=== PATIENT | male | born 1940 | race Caucasian/White ===

== ENCOUNTER → 2020-07-05 | Outpatient (CLI) | payer OTHER ==
--- NOTE | 2020-07-05 15:22 | Diagnostic Imaging Report ---
PROCEDURE: US carotid duplex, bilateral. TECHNIQUE: Multiple real-time grayscale images were obtained over the carotid arteries in various projections, bilaterally. Additional spectral analysis and color Doppler duplex images were also obtained. INDICATION: Atherosclerosis heart disease. COMPARISON: There are no prior studies available for comparison. FINDINGS: There is at least a moderate amount of hard and soft plaque formation in both carotid bifurcations. The flow velocities failed to show any sign of a hemodynamically significant stenosis of the common or internal carotid arteries, however. Both vertebral arteries were noted and there was antegrade flow bilaterally. IMPRESSION: There is atherosclerotic disease involving both carotid systems, but there is no evidence for hemodynamically significant stenosis of the common or internal carotid arteries. Parameters based on the consensus panel Marr-Scale and Doppler ultrasound criteria published May 2003, Radiology, Volume 229. DOPPLER (peak systolic velocity M/S Right Left CCA 1.1 1.2 ICA Proximal .92 .87 ICA Mid .57 .65 ICA Distal .82 .73 RATIO .8 .7 ECA 1.2 1.5 VERT .63 .49 Dictated by: Dictated on workstation # [id number]
== END ==
LOC: CARD 13:24
PROVIDERS: ATTEND Physician Assistant
DX: I08.3 Combined rheumatic disorders of mitral, aortic and tricuspid valves (principal); I25.10 Atherosclerotic heart disease of native coronary artery without angina pectoris; I65.23 Occlusion and stenosis of bilateral carotid arteries
CPT/HCPCS: 93306; 93880

== ENCOUNTER → 2020-07-06 | Outpatient (CLI) | payer OTHER ==
[~2020-07-06] VITALS: Ht 182 cm; Wt 102.0 kg
[~2020-07-06] MED LIST: CATHETER FLUSH 10 ML SYR IV PRN; REGADENOSON 0.4 MG/5 ML SYR (LEXISCAN) IV ONE
[2020-07-06 09:23] VITALS: BP 155/74
[2020-07-06 09:27] VITALS: BP 149/76
[2020-07-06 09:29] VITALS: BP 156/75
--- NOTE | 2020-07-06 13:23 | Cardiology Stress Test Report ---
Stress Test Report Date of Procedure/Referring: Date of Procedure: Jul 06, 2020 PCP [facility] Admitting Physician No,Local Physician Indications: Coronary artery disease Baseline Heart Rate: 53 Baseline Blood Pressure: Blood Pressure Systolic: 156 Blood Pressure Diastolic: 75 Baseline Vitals Vital Signs Date Time Temp Pulse Resp B/P (MAP) Pulse Ox O2 Delivery O2 Flow Rate FiO2 07/06/20 09:23 53 18 155/74 (101) 98 Room Air Baseline EKG: Baseline EKG: sinus rhythm, occasional PVC Summary After explaining the procedure to the patient, he signed a consent and then brought to the stress nuclear laboratory. Patient received 0.4 mg Lexiscan for stress test, ECG, heart rate and blood pressure were monitored continuously. Resting and stress dose of radio tracer were injected, imaging was acquired and reviewed in short axis, horizontal long axis and vertical long axis views. TID: 0.99 SSS: 11 SDS: 1 EF: 41 1. Patient tolerated Lexiscan well 2. Baseline sinus bradycardia with occasional PVCs persisted during test 3. Diaphragmatic attenuation with fixed defect involving the whole inferior wall with no reversibility, mild reversible ischemia involving the mid to apical anterior wall 4. Normal left ventricular size, hypokinesia at the inferior wall, EF 41 percent MARIAELENA TOBIAS MD Jul 06, 2020 13:23
== END ==
LOC: CARD 08:11
PROVIDERS: ATTEND Physician Assistant
DX: I25.10 Atherosclerotic heart disease of native coronary artery without angina pectoris (principal)
CPT/HCPCS: 78452; 93017; A9502

== ENCOUNTER → 2021-10-20 | Outpatient (CLI) | payer MEDICARE | LOC: CARD 10:00 | PROVIDERS: ATTEND Internal Medicine Cardiovascular Disease | DX: I11.9 Hypertensive heart disease without heart failure (principal); I08.0 Rheumatic disorders of both mitral and aortic valves | CPT/HCPCS: 93306 ==

== ENCOUNTER → 2021-11-21 | Outpatient (CLI) | payer MEDICARE ==
--- NOTE | 2021-11-21 10:52 | Diagnostic Imaging Report ---
EXAMINATION: CT abdomen and pelvis without contrast. TECHNIQUE: Multiple contiguous axial images were obtained through the abdomen and pelvis without the use of intravenous contrast. All CT scans use one or more of the following dose optimizing techniques: automated exposure control, MA and/or KvP adjustment based on patient size and exam type or iterative reconstruction. HISTORY: Prostate cancer COMPARISON: None available. FINDINGS: Limited views of the lower thorax show coronary artery calcifications. The liver is normal without focal lesion. There is no biliary ductal dilation. There are stones in the gallbladder. Pancreas is normal. Spleen is normal. Adrenal glands are normal. There are nonobstructing stones in the right kidney measuring up to 5 mm. There is a simple cyst in the left kidney and a hemorrhagic cyst in left kidney. No suspicious renal lesions. There are also simple cysts on the right. There is no hydronephrosis. Urinary bladder is normal. Bowel is normal in caliber without obstruction or inflammation. No free fluid or air. No abdominal or pelvic lymphadenopathy. Aorta is normal in caliber without aneurysm. There are no suspicious osseus lesions. There is a moderate L2 compression fracture that is likely chronic. IMPRESSION: 1. No metastatic disease seen in the abdomen or pelvis. Dictated by: Dictated on workstation # [id number]
--- NOTE | 2021-11-21 13:46 | Diagnostic Imaging Report ---
INDICATION: Prostate cancer. Patient was administered 26.8 mCi technetium 99m MDP intravenously and whole-body imaging was performed after 3 hour delay. No prior studies are available for comparison. There is normal uptake of activity by the axial and appendicular skeleton. This uptake by the kidneys with excretion to urinary bladder. No suspicious foci are seen to suggest osseous metastatic disease. IMPRESSION: No scintigraphic evidence of osseous metastatic disease. Dictated by: Dictated on workstation # [id number]
== END ==
LOC: CARD 09:46
PROVIDERS: ATTEND Urology
DX: C61 Malignant neoplasm of prostate (principal)
CPT/HCPCS: 74176; 78306; A9503

== ENCOUNTER 2021-11-27 10:36 | Outpatient (RCR) | payer MEDICARE | END 2021-12-26 | disposition home or self-care (01) | LOC: ONC 10:36 | PROVIDERS: ATTEND Radiology Radiation Oncology | DX: C61 Malignant neoplasm of prostate (principal); I25.10 Atherosclerotic heart disease of native coronary artery without angina pectoris; E78.5 Hyperlipidemia, unspecified; I10 Essential (primary) hypertension | CPT/HCPCS: 99204 ==

== ENCOUNTER → 2022-02-27 | Outpatient (CLI) | payer MEDICARE ==
--- NOTE | 2022-02-27 15:54 | Diagnostic Imaging Report ---
EXAMINATION: Chest 2 view HISTORY: HEART IRREGULARLY IRREGULAR CARDIAC ARRHYTHMIA COMPARISON: None available. FINDINGS: Heart size and pulmonary vasculature are normal. Surgical changes from CABG. The lungs are clear without consolidation, pleural effusion, or pneumothorax. The osseous structures are intact. IMPRESSION: 1. No acute radiographic abnormality in the chest. Dictated by: Dictated on workstation # [id number]
== END ==
LOC: CARD 15:17
PROVIDERS: ATTEND Nurse Practitioner Family
DX: I49.9 Cardiac arrhythmia, unspecified (principal)
CPT/HCPCS: 71046; 93005

== ENCOUNTER 2022-03-07 11:42 | Day surgery (SDC) | payer MEDICARE ==
[2022-03-07] VITALS (11 sets, daily range): BP systolic 133–160; BP diastolic 67–90
[~2022-03-07] VITALS: Ht 183 cm; Wt 104.0 kg
[2022-03-07] MEDS ORDERED: NS IV 1000 ML 1,000 ML IV SCH ×2 (12:00→14:00)
[2022-03-07 12:31] LABS: BILIRUBIN,URINE NEGATIVE (NEGATIVE); CLARITY,URINE CLEAR; COLOR,URINE DARK YELLOW; GLUCOSE, URINE (UA) NEGATIVE (NEGATIVE); KETONES,URINE NEGATIVE (NEGATIVE); LEUKOCYTE ESTERASE ,URINE NEGATIVE (NEGATIVE); NITRITE,URINE NEGATIVE (NEGATIVE); PH,URINE 5.5 (5-9); PROTEIN,URINE NEGATIVE (NEGATIVE)
[2022-03-07 12:32] LABS: HEMATOCRIT 42 % (40-54); HEMOGLOBIN 13.4 g/dL (13.3-17.7); MEAN CORPUSCULAR HEMOGLOBIN 29 pg (25-34); MEAN CORPUSCULAR HGB CONC 32 g/dL (32-36); MEAN CORPUSCULAR VOLUME 90 fL (80-99); MEAN PLATELET VOLUME 9.2 fL (9.0-12.2); PLATELET COUNT 235 10^3/uL (130-400); WHITE BLOOD COUNT 6.7 10^3/uL (4.3-11.0)
--- NOTE | 2022-03-07 12:37 | Cardiac Procedure Note-CS/ASA ---
Pre-Procedure Note Pre-Op Procedure Note Date of Available H&P: Mar 06, 2022 Date H&P Reviewed: Mar 07, 2022 Time H&P Reviewed: 12:37 History & Physical: H&P Reviewed, Patient Examed, No changes noted Pre-Operative Diagnosis: Coronary artery disease Conscious Sedation Pre-Proced Time 12:37 ASA Score 3 For ASA 3 and 4: Consider anesthesia and medical clearance. Also, for patients with a history of failed moderate sedation consider anesthesia. Airway Lungs Heart ASA score ASA 1: a normal healthy patient ASA 2: a patient with a mild systemic disease (mid diabetes, controlled hypertension, obesity x ASA 3: a patient with a severe systemic disease that limits activity (angina, COPD, prior Myocardial infarction) ASA 4: a patient with an incapacitating disease that is a constant threat to life (CHF, renal failure) ASA 5: a moribund patient not expected to survive 24 hrs. (ruptured aneurysm) ASA 6: a declared brain- patient whose organs are being harvested. For emergent operations, add the letter E after the classification Mallampati Classification Grade 3 Sedation Plan Analgesia, Amnesia, Plan communicated to team members, Discussed options with patient/fam, Discussed risks with patient/fam The patient is an appropriate candidate to undergo the planned procedure, sedation, and anesthesia. The patient immediately re-assessed prior to indication. MARIAELENA TOBIAS MD Mar 07, 2022 12:37
[2022-03-07 12:43] LABS: PROTHROMBIN TIME PATIENT 13.3 SEC (12.2-14.7)
[2022-03-07] MEDS ORDERED: PANT40TA52 PO (12:43)
[2022-03-07] MEDS ORDERED: MTP25TSR PO (12:43)
[2022-03-07] MEDS ORDERED: HYDR-3820 PO (12:43)
[2022-03-07] MEDS ORDERED: APIX5TAB PO (12:43)
[2022-03-07] MEDS ORDERED: CALC600T91 PO (12:43)
[2022-03-07] MEDS ORDERED: CETI10CA PO (12:43)
[2022-03-07] MEDS ORDERED: SIMV40TA25 PO (12:43)
[2022-03-07] MEDS ORDERED: AMLO10TA4 PO (12:43)
[2022-03-07] MEDS ORDERED: CHOL100048 PO (12:43)
[2022-03-07] MEDS ORDERED: ASPI-999 PO (12:43)
[2022-03-07] MEDS ORDERED: CITA20TA9 PO (12:43)
[2022-03-07] MEDS ORDERED: HYDR200T46 PO (12:43)
[2022-03-07 12:49] LABS: BACTERIA,URINE TRACE /HPF; SQUAMOUS EPITHELIAL CELL,UR RARE /HPF; WBC,URINE 0-2 /HPF
[2022-03-07 12:52] LABS: ALBUMIN 4.1 GM/DL (3.2-4.5); BILIRUBIN,TOTAL 0.6 MG/DL (0.1-1.0); CALCIUM 9.5 MG/DL (8.5-10.1); CREATININE SERUM 1.51 MG/DL (0.60-1.30); POTASSIUM 4.4 MMOL/L (3.6-5.0); TOTAL PROTEIN 6.6 GM/DL (6.4-8.2)
[2022-03-07] MEDS ORDERED: MIDAZOLAM 5 MG/5 ML (VERSED) VIAL ONE (12:56)
[2022-03-07] MEDS ORDERED: fentaNYL INJ 100 MCG/2 ML AMP ONE (12:56)
[2022-03-07] MEDS ORDERED: NS IV 1000 ML 1,000 ML ONE (13:11)
[2022-03-07] MEDS ORDERED: HEParin (CATH LAB) 2,000 ML IV ONE (13:11)
[2022-03-07] MEDS ORDERED: LIDOCAINE 1% INJ 20 ML VIAL ONE (13:11)
--- NOTE | 2022-03-07 13:54 | Discharge Inst-Post CATH ---
Discharge Inst-CATH/EP Problems Reviewed?: Yes Post Cardiac Cath/EP D/C Inst Follow Up/Plan Appointment with Dr. Walls's office in 2 to 4 weeks <b>CARDIAC CATH/EP PROCEDURE DISCHARGE INSTRUCTIONS</b> ACTIVITY * Go Home directly and rest. * Limit activity of the leg (or wrist if it was used) for 7 days including aer obics, swimming, jogging, bicycling, etc. * Restrict stair-climbing for 7 days if possible, if not, climb up with your non-cath leg, then bring together on the same step. * Avoid lifting, pushing, pulling or excessive movement of the affected extremi ty for 7 days. * Customary sexual activity may be resumed after 2 days-use caution not to use a position that strains or causes pain to the affected extremity. * No driving for 24 hours. * NO SMOKING. * Avoid straining for bowel movements for 7 days. * Gentle walking on level ground is allowed. * Returning to work will depend on the type of procedure and the results. Your doctor will discuss this with you. CALL YOUR DOCTOR FOR ANY OF THE FOLLOWING: *If bleeding from the puncture site occurs- Apply gentle pressure to site with clean cloth and call your doctor or EMS. * If a knot or lump forms under the skin, increases in size, or causes pain. * If bruising appears to be worsening or moving further down your leg instead of disappearing. * Temperature above 101 F. CARE OF YOUR GROIN INCISION; * Bruising or purple discoloration of the skin near the puncture site is common. * You may shower only, no bathtub bathing for 5 days. Be careful to avoid slipping as your leg may feel stiff. * If a closure device was used on your femoral artery, please see the attached guide regarding care of the device and your leg. * Leave dressing on FOR 24 hours. CARE OF YOUR WRIST INCISION; * Bruising or purple discoloration of the skin near the puncture site is common. * You may shower. * DO NOT submerge wrist. * Leave dressing on FOR 24 hours. MARIAELENA WALLS MD Mar 07, 2022 13:54
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
[2022-03-07] MEDS ORDERED: PATIENT MAY USE OWN MEDS, ALL PO SCH (14:00)
== END 2022-03-07 18:00 ==
LOC: CATH 11:42
PROVIDERS: ATTEND Internal Medicine Cardiovascular Disease
DX: I25.10 Atherosclerotic heart disease of native coronary artery without angina pectoris (principal); I10 Essential (primary) hypertension; E78.5 Hyperlipidemia, unspecified; R07.9 Chest pain, unspecified; Z79.01 Long term (current) use of anticoagulants; Z79.82 Long term (current) use of aspirin
CPT/HCPCS: 80053; 80061; 81000; 85027; 85610; 85730; 87081; 93458; C1760; C1769; C1894; 36415

== ENCOUNTER 2022-09-12 10:20 | Outpatient (RCR) | payer MEDICARE ==
[~2022-09-12 10:20] MED LIST changes: +AMLO10TA4 PO; +APIX5TAB PO; +ASPI-999 PO; +CALC600T91 PO; -CATHETER FLUSH 10 ML SYR IV PRN; +CETI10CA PO; +CHOL100048 PO; +CITA20TA9 PO; +HYDR-3820 PO; +HYDR200T46 PO; +MTP25TSR PO; +PANT40TA52 PO; -REGADENOSON 0.4 MG/5 ML SYR (LEXISCAN) IV ONE; +SIMV40TA25 PO
[2022-09-12] MEDS ORDERED: LEUPROLIDE 22.5 MG SYRINGE (ELIGARD) SQ SCH (11:15)
== END 2022-09-25 | disposition home or self-care (01) ==
LOC: ONC 10:20
PROVIDERS: ATTEND Internal Medicine Hematology & Oncology
DX: C61 Malignant neoplasm of prostate (principal); I10 Essential (primary) hypertension; I25.10 Atherosclerotic heart disease of native coronary artery without angina pectoris; E78.2 Mixed hyperlipidemia; I48.0 Paroxysmal atrial fibrillation
CPT/HCPCS: 84153

== ENCOUNTER 2022-12-05 13:53 | Outpatient (RCR) | payer MEDICARE ==
[~2022-12-05 13:53] MED LIST changes: +LEUPROLIDE 22.5 MG SYRINGE (ELIGARD) SQ SCH
== END 2022-12-26 | disposition home or self-care (01) ==
LOC: ONC 13:53
PROVIDERS: ATTEND Internal Medicine Hematology & Oncology
DX: Z51.11 Encounter for antineoplastic chemotherapy (principal); C61 Malignant neoplasm of prostate; I10 Essential (primary) hypertension; I25.10 Atherosclerotic heart disease of native coronary artery without angina pectoris; E78.2 Mixed hyperlipidemia; I48.0 Paroxysmal atrial fibrillation
CPT/HCPCS: 36415; 84153; 96402

== ENCOUNTER → 2023-02-08 | Outpatient (CLI) | payer MEDICARE ==
[~2023-02-08] MED LIST changes: -HYDR200T46 PO; +HYDR200T71 PO; -LEUPROLIDE 22.5 MG SYRINGE (ELIGARD) SQ SCH
--- NOTE | 2023-02-08 17:17 | Diagnostic Imaging Report ---
Indication: Fall with fracture and back pain AP and lateral views of thoracic spine reveal normal thoracic spinal curvature and alignment. Vertebral body heights and disc spaces are maintained. There is no evidence of paraspinous abnormality. No lytic or sclerotic lesion is seen. Surgical findings are present in the mediastinum and sternum. IMPRESSION: No radiographic evidence of acute thoracic spinal abnormality. Dictated by: Dictated on workstation # [id number]
--- NOTE | 2023-02-08 17:22 | Diagnostic Imaging Report ---
Indication: Low back pain AP and lateral views of lumbar spine are obtained. Correlation is made to CT scan of abdomen pelvis dated 11/21/2021. Severe central compression fracture of L2 vertebral body is a stable morphology. Remainder of lumbar spine. There is mild disc space narrowing at L1-L2 and moderate to severe narrowing at the L2-L3 level. Sclerosis is seen in the lower lumbar facet joints. IMPRESSION: Nonacute L2 compression fracture with associated degenerative findings similar to previous study. No acute abnormality or adverse change is identified. Dictated by: Dictated on workstation # [id number]
== END ==
LOC: RAD 14:11
PROVIDERS: ATTEND Nurse Practitioner Family
DX: S22.009A Unspecified fracture of unspecified thoracic vertebra, initial encounter for closed fracture (principal); M54.50 Low back pain, unspecified; X58.XXXA Exposure to other specified factors, initial encounter; S32.020A Wedge compression fracture of second lumbar vertebra, initial encounter for closed fracture; M47.816 Spondylosis without myelopathy or radiculopathy, lumbar region
CPT/HCPCS: 72070; 72100

== ENCOUNTER 2023-02-26 13:35 | Outpatient (RCR) | payer MEDICARE ==
[~2023-02-26 13:35] MED LIST changes: +LEUPROLIDE 22.5 MG SYRINGE (ELIGARD) SQ SCH
== END 2023-03-28 | disposition home or self-care (01) ==
LOC: ONC 13:35
PROVIDERS: ATTEND Internal Medicine Hematology & Oncology
DX: Z51.11 Encounter for antineoplastic chemotherapy (principal); C61 Malignant neoplasm of prostate; I10 Essential (primary) hypertension; I25.10 Atherosclerotic heart disease of native coronary artery without angina pectoris; E78.2 Mixed hyperlipidemia; I48.0 Paroxysmal atrial fibrillation
CPT/HCPCS: 84153; 96402; G0463; 36415; 99214

== ENCOUNTER 2023-05-21 13:42 | Outpatient (RCR) | payer MEDICARE | END 2023-05-28 | disposition home or self-care (01) | LOC: ONC 13:42 | PROVIDERS: ATTEND Internal Medicine Hematology & Oncology | DX: C61 Malignant neoplasm of prostate (principal); I10 Essential (primary) hypertension; E78.2 Mixed hyperlipidemia; I48.0 Paroxysmal atrial fibrillation | CPT/HCPCS: 36415; 84153; 96402 ==

== ENCOUNTER → 2023-05-23 | Outpatient (CLI) | payer MEDICARE ==
[~2023-05-23] MED LIST changes: -LEUPROLIDE 22.5 MG SYRINGE (ELIGARD) SQ SCH
== END ==
LOC: CARD 13:23
PROVIDERS: ATTEND Internal Medicine Cardiovascular Disease
DX: I08.0 Rheumatic disorders of both mitral and aortic valves (principal); I11.9 Hypertensive heart disease without heart failure
CPT/HCPCS: 93306